=== PATIENT | male | born 1985 | race Caucasian/White ===

== ENCOUNTER 2021-10-12 18:35 | Inpatient (IN) | payer OTHER ==
[~2021-10-12] VITALS: Ht 182.9 cm; Wt 127.6 kg
[~2021-10-12 18:35] MED LIST: NAPROXEN250 MG PO
[2021-10-12] MEDS ORDERED: ONDANSETRON HCL INJ 2MG/ML 2ML 2 MG/ML VIAL IV STA (18:41)
[2021-10-12] MEDS ORDERED: Morphine 4mg Syringe 4 MG/ML INJ IV ONE (18:45)
[2021-10-12 19:02] LABS: BASOPHILS % 0.4 % (0.0-1.0); EOSINOPHILS % 0.3 % (0.0-6.0); HEMATOCRIT 44.1 % (38.2-49.6); HEMOGLOBIN 15.3 g/dL (14.0-18.0); LYMPHOCYTES # (AUTO) 1.3 (1.0-3.2); LYMPHOCYTES % 17.3 % (18.0-39.1); MEAN CORPUSCULAR HEMOGLOBIN 34.9 pg (28-32); MEAN CORPUSCULAR HGB CONC 34.7 g/dL (31-35); MEAN CORPUSCULAR VOLUME 100.7 fL (81-99); MONOCYTES # (AUTO) 0.3 (0.2-0.8); MONOCYTES % 4.1 % (4.4-11.3); NEUTROPHILS # (AUTO) 5.7 (2.1-6.9); NEUTROPHILS % 77.6 % (38.7-80.0); PLATELET COUNT 220 x10e3/uL (140-360); RED BLOOD COUNT 4.38 x10e6/uL (4.3-5.7); RED CELL DISTRIBUTION WIDTH 12.3 % (11.7-14.4)
[2021-10-12 19:25] LABS: ALBUMIN 3.6 g/dL (3.5-5.0); ALBUMIN/GLOBULIN RATIO 0.9 (0.8-2.0); ANION GAP 18.2 mmol/L (8-16); CALCIUM 9.2 mg/dL (8.4-10.2); CREATININE, SERUM 0.74 mg/dL (0.72-1.25); POTASSIUM 3.2 mmol/L (3.5-5.1)
[2021-10-12 19:26] LABS: AMYLASE 50 U/L (25-125); LIPASE 20 U/L (8-78)
[2021-10-12] MEDS: LEVOFLOXACIN 750MG/D5W 150ML 150 ML IV SCH (20:59)
[2021-10-12] MEDS: HYDROMORPHONE 1MG/1ML INJ IV PRN ×2 (20:59→21:01)
[2021-10-12] MEDS: ONDANSETRON HCL INJ 2MG/ML 2ML 2 MG/ML VIAL IV PRN ×2 (20:59→21:01)
[2021-10-12 21:39] VITALS: BP 144/78
[2021-10-12 21:51] LABS: CLARITY,URINE SL CLOUDY (CLEAR); COLOR,URINE AMBER (YELLOW); KETONES,URINE NEGATIVE (NEGATIVE); LEUKOCYTE ESTERASE ,URINE NEGATIVE (NEGATIVE); NITRITE,URINE NEGATIVE (NEGATIVE); PROTEIN,URINE DIPSTICK NEGATIVE (NEGATIVE); URINE UROBILINOGEN 0.2 mg/dL (0.2 - 1)
[2021-10-12 21:59] LABS: BACTERIA,URINE RARE /HPF; MUCUS,URINE FEW (RARE); WBC,URINE (MAN) 0-5 /HPF (0-5)
[2021-10-12 22:30] VITALS: BP 135/72
[2021-10-12] MEDS: SODIUM CHLORIDE 0.9% 1000ML 1,000 ML IV SCH (23:01)
[2021-10-12] MEDS: METRONIDAZOLE 500MG/NS 100ML 100 ML IV SCH (23:01)
[2021-10-13] VITALS (7 sets, daily range): BP systolic 137–152; BP diastolic 75–97
[2021-10-13] MEDS: ONDANSETRON HCL INJ 2MG/ML 2ML 2 MG/ML VIAL IV PRN ×4 (00:57→20:26)
[2021-10-13] MEDS: HYDROMORPHONE 1MG/1ML INJ IV PRN ×5 (00:58→20:26)
[2021-10-13] MEDS: POTASSIUM CHLORIDE 10MEQ/100ML 100 ML IV SCH ×4 (02:00→09:37)
[2021-10-13] MEDS ORDERED: MULTI-VITAMIN1 EACH PO (03:30)
[2021-10-13] MEDS ORDERED: ALLOPURINOL100 MG PO (03:30)
[2021-10-13] MEDS ORDERED: AMLODIPINE BESYL5 MG PO (03:30)
[2021-10-13] MEDS ORDERED: OMEPRAZOLE40 MG PO (03:30)
[2021-10-13] MEDS ORDERED: LISINOPRIL10 MG PO (03:30)
[2021-10-13] MEDS: SODIUM CHLORIDE 0.9% 1000ML 1,000 ML IV SCH ×3 (05:18→21:54)
[2021-10-13] MEDS: METRONIDAZOLE 500MG/NS 100ML 100 ML IV SCH ×4 (05:18→22:59)
[2021-10-13 05:51] LABS: BASOPHILS % 0.3 % (0.0-1.0); EOSINOPHILS % 0.5 % (0.0-6.0); LYMPHOCYTES % 13.5 % (18.0-39.1); MEAN CORPUSCULAR HEMOGLOBIN 34.7 pg (28-32); MEAN CORPUSCULAR HGB CONC 33.3 g/dL (31-35); MONOCYTES # (AUTO) 0.4 (0.2-0.8); MONOCYTES % 5.3 % (4.4-11.3); NEUTROPHILS # (AUTO) 5.8 (2.1-6.9); NEUTROPHILS % 79.7 % (38.7-80.0); PLATELET COUNT 150 x10e3/uL (140-360); RED BLOOD COUNT 3.75 x10e6/uL (4.3-5.7); RED CELL DISTRIBUTION WIDTH 12.8 % (11.7-14.4)
[2021-10-13 06:18] LABS: % IRON SATURATION 13 % (15-50); IRON 49 ug/dL (65-175); TOTAL IRON BINDING CAPACITY 389 ug/dL (261-478); TRANSFERRIN 278 mg/dL (174-364)
[2021-10-13 06:38] LABS: ALBUMIN 2.9 g/dL (3.5-5.0); ALBUMIN/GLOBULIN RATIO 0.8 (0.8-2.0); ANION GAP 16.2 mmol/L (8-16); CALCIUM 8.2 mg/dL (8.4-10.2); CREATININE, SERUM 0.76 mg/dL (0.72-1.25); POTASSIUM 3.2 mmol/L (3.5-5.1)
[2021-10-13] MEDS ORDERED: POTASSIUM CHLORIDE 20MEQ/100ML 200 ML IV ONE (13:30)
[2021-10-13 13:54] LABS: CHOL/HDL RATIO 3.8 (3.9-4.7)
[2021-10-13] MEDS: CYANOCOBALAMIN INJ 1,000 MCG/ML VIAL IM SCH (15:32)
[2021-10-13] MEDS: LEVOFLOXACIN 750MG/D5W 150ML 150 ML IV SCH (21:54)
[2021-10-14] VITALS (8 sets, daily range): BP systolic 108–146; BP diastolic 62–97
[2021-10-14] MEDS: HYDROMORPHONE 1MG/1ML INJ IV PRN ×6 (00:21→22:15)
[2021-10-14] MEDS: ONDANSETRON HCL INJ 2MG/ML 2ML 2 MG/ML VIAL IV PRN ×5 (00:21→17:59)
[2021-10-14] MEDS: ACETAMINOPHEN 325 MG TAB PO PRN (00:21)
[2021-10-14] MEDS: SODIUM CHLORIDE 0.9% 1000ML 1,000 ML IV SCH ×3 (05:26→21:13)
[2021-10-14] MEDS: METRONIDAZOLE 500MG/NS 100ML 100 ML IV SCH ×4 (05:26→23:00)
[2021-10-14] MEDS: IRON SUCROSE 100 MG in SODIUM CHLORIDE 0.9% 100 ML 100 ML IV SCH (09:27)
[2021-10-14] MEDS: CYANOCOBALAMIN INJ 1,000 MCG/ML VIAL IM SCH (09:27)
[2021-10-14] MEDS ORDERED: POTASSIUM CHLORIDE 20 MEQ TAB CR PO ONE (18:45)
[2021-10-14] MEDS: LEVOFLOXACIN 750MG/D5W 150ML 150 ML IV SCH (21:13)
[2021-10-15] VITALS (7 sets, daily range): BP systolic 114–143; BP diastolic 69–91
[2021-10-15] MEDS: ACETAMINOPHEN 325 MG TAB PO PRN (00:12)
[2021-10-15] MEDS: HYDROMORPHONE 1MG/1ML INJ IV PRN ×4 (02:27→20:13)
[2021-10-15] MEDS: METRONIDAZOLE 500MG/NS 100ML 100 ML IV SCH ×4 (04:37→22:57)
[2021-10-15] MEDS: SODIUM CHLORIDE 0.9% 1000ML 1,000 ML IV SCH ×3 (04:37→20:15)
[2021-10-15 07:34] LABS: BASOPHILS % 0.3 % (0.0-1.0); EOSINOPHILS # (AUTO) 0.1 (0.0-0.4); EOSINOPHILS % 1.4 % (0.0-6.0); HEMATOCRIT 34.8 % (38.2-49.6); HEMOGLOBIN 11.5 g/dL (14.0-18.0); LYMPHOCYTES # (AUTO) 1.3 (1.0-3.2); LYMPHOCYTES % 21.3 % (18.0-39.1); MEAN CORPUSCULAR HEMOGLOBIN 34.6 pg (28-32); MEAN CORPUSCULAR VOLUME 104.8 fL (81-99); MONOCYTES # (AUTO) 0.4 (0.2-0.8); MONOCYTES % 6.7 % (4.4-11.3); NEUTROPHILS # (AUTO) 4.3 (2.1-6.9); NEUTROPHILS % 69.5 % (38.7-80.0); PLATELET COUNT 109 x10e3/uL (140-360); RED BLOOD COUNT 3.32 x10e6/uL (4.3-5.7); RED CELL DISTRIBUTION WIDTH 12.3 % (11.7-14.4)
[2021-10-15 08:11] LABS: ANION GAP 14.1 mmol/L (8-16); CALCIUM 7.9 mg/dL (8.4-10.2); CREATININE, SERUM 0.73 mg/dL (0.72-1.25); POTASSIUM 3.1 mmol/L (3.5-5.1)
[2021-10-15] MEDS: CYANOCOBALAMIN INJ 1,000 MCG/ML VIAL IM SCH (09:11)
[2021-10-15] MEDS: IRON SUCROSE 100 MG in SODIUM CHLORIDE 0.9% 100 ML 100 ML IV SCH (09:16)
[2021-10-15] MEDS ORDERED: POTASSIUM CHLORIDE 20 MEQ TAB CR PO STA (19:39)
[2021-10-15] MEDS: LEVOFLOXACIN 750MG/D5W 150ML 150 ML IV SCH (20:15)
[2021-10-16] VITALS (7 sets, daily range): BP systolic 125–144; BP diastolic 79–96
[2021-10-16] MEDS ORDERED: MELATONIN 5 MG TABLET PO PRN (01:30)
[2021-10-16] MEDS: HYDROMORPHONE 1MG/1ML INJ IV PRN ×3 (01:50→16:34)
[2021-10-16] MEDS: METRONIDAZOLE 500MG/NS 100ML 100 ML IV SCH ×3 (05:23→16:27)
[2021-10-16] MEDS: SODIUM CHLORIDE 0.9% 1000ML 1,000 ML IV SCH ×2 (05:23→13:00)
[2021-10-16] MEDS: CYANOCOBALAMIN INJ 1,000 MCG/ML VIAL IM SCH (08:58)
[2021-10-16] MEDS: IRON SUCROSE 100 MG in SODIUM CHLORIDE 0.9% 100 ML 100 ML IV SCH (08:58)
[2021-10-16] MEDS: ONDANSETRON HCL INJ 2MG/ML 2ML 2 MG/ML VIAL IV PRN ×2 (09:03→16:34)
[2021-10-16] MEDS ORDERED: POTASSIUM CHLORIDE 20 MEQ TAB CR PO ONE ×3 (11:30→19:15)
[2021-10-16] MEDS ORDERED: ACETAMINOPHEN/CODEINE 300MG - 30MG TAB PO PRN (19:00)
[2021-10-16] MEDS ORDERED: LEVOFLOXACIN500 MG PO (20:36)
[2021-10-16] MEDS ORDERED: METRONIDAZOLE500 MG PO (20:36)
== END 2021-10-16 21:23 | disposition home or self-care (01) | DRG 392 ==
LOC: ER 18:41 → ERHOLD 21:06 → MED/SURG2 22:20
PROVIDERS: ADMIT Internal Medicine; ATTEND Internal Medicine
DX: K57.20 Diverticulitis of large intestine with perforation and abscess without bleeding (principal); K61.1 Rectal abscess; K74.60 Unspecified cirrhosis of liver; E53.8 Deficiency of other specified B group vitamins; E87.6 Hypokalemia; R73.9 Hyperglycemia, unspecified; Z20.822 Contact with and (suspected) exposure to COVID-19; R16.2 Hepatomegaly with splenomegaly, not elsewhere classified; E66.9 Obesity, unspecified; Z68.38 Body mass index [BMI] 38.0-38.9, adult; K21.9 Gastro-esophageal reflux disease without esophagitis; I10 Essential (primary) hypertension; F43.10 Post-traumatic stress disorder, unspecified; Z96.643 Presence of artificial hip joint, bilateral
CPT/HCPCS: 36415; 74177; 76705; 80048; 80053; 80061; 81001; 82150; 82607; 82746; 83036; 83540; 83690; 84132; 84466; 85025; 85045; 99251; 99284; J1170; J1756; J2405; J3420; J3480; J7030; U0002

== ENCOUNTER 2023-06-27 22:18 | Inpatient (IN) | payer OTHER ==
[~2023-06-27] VITALS: Ht 182.9 cm; Wt 118.8 kg
[~2023-06-27 22:18] MED LIST changes: +ACETAMINOPHEN-1 EAC3 PO; +ACETAMINOPHEN325 M1 PO; +ALLOPURINOL100 MG PO; +AMLODIPINE BESYL5 MG PO; +CEPHALEXIN500 MG PO; +DOXYCYCLINE HY100 MG PO; +Docusate Sodium PO; +FLAGYL375 MG PO; +K-DUR10 MEQ PO; +LEVOFLOXACIN500 MG PO; +LISINOPRIL10 MG PO; +METRONIDAZOLE500 MG PO; +MINOCYCLINE HCL50 MG PO; +MULTI-VITAMIN1 EACH PO; +OMEPRAZOLE40 MG PO; +ULTRAM 50MG50 MG PO
[2023-06-27] MEDS ORDERED: Morphine 4mg INJECTION 4 MG/ML INJ IV STA (22:26)
[2023-06-27] MEDS ORDERED: ONDANSETRON HCL INJ 2MG/ML 2ML 2 MG/ML VIAL IV STA (22:26)
[2023-06-27] MEDS ORDERED: SODIUM CHLORIDE 0.9% 1000ML 1,000 ML IV STA (22:37)
[2023-06-27] MEDS ORDERED: ACETAMINOPHEN 325 MG TAB PO STA (22:37)
[2023-06-27 23:05] LABS: BASOPHILS % 0.2 % (0.0-1.0); EOSINOPHILS # (AUTO) 0.1 (0.0-0.4); EOSINOPHILS % 1.1 % (0.0-6.0); HEMOGLOBIN 10.6 g/dL (14.0-18.0); LYMPHOCYTES # (AUTO) 1.5 (1.0-3.2); LYMPHOCYTES % 18.2 % (18.0-39.1); MEAN CORPUSCULAR HEMOGLOBIN 39.1 pg (28-32); MEAN CORPUSCULAR HGB CONC 33.1 g/dL (31-35); MEAN CORPUSCULAR VOLUME 118.1 fL (81-99); MONOCYTES # (AUTO) 0.5 (0.2-0.8); MONOCYTES % 5.9 % (4.4-11.3); NEUTROPHILS # (AUTO) 6.2 (2.1-6.9); NEUTROPHILS % 74.4 % (38.7-80.0); PLATELET COUNT 270 x10e3/uL (140-360); RED BLOOD COUNT 2.71 x10e6/uL (4.3-5.7); RED CELL DISTRIBUTION WIDTH 12.8 % (11.7-14.4); WHITE BLOOD COUNT 8.37 x10e3/uL (4.8-10.8)
[2023-06-27 23:22] LABS: ALANINE AMINOTRANSFERASE 20 IU/L (0-55); ALBUMIN 3.4 g/dL (3.5-5.0); ALBUMIN/GLOBULIN RATIO 0.9 (0.8-2.0); ALKALINE PHOSPHATASE 391 IU/L (40-150); ANION GAP 22.6 mmol/L (8-16); BILIRUBIN,TOTAL 0.8 mg/dL (0.2-1.2); BLOOD UREA NITROGEN < 5 mg/dL (7-26); CALCIUM 8.4 mg/dL (8.4-10.2); CARBON DIOXIDE 17 mmol/L (22-29); CHLORIDE 103 mmol/L (98-107); CREATININE, SERUM 0.69 mg/dL (0.72-1.25); EST GLOMERULAR FILTRATION RATE 121 ML/MIN (>=60); GLUCOSE 109 mg/dL (74-118); SODIUM 140 mmol/L (136-145); TOTAL PROTEIN 7.3 g/dL (6.5-8.1)
[2023-06-27 23:28] LABS: BUN/CREATININE RATIO 7 (6-25)
[2023-06-27 23:29] LABS: POTASSIUM 2.6 mmol/L (3.5-5.1)
[2023-06-27] MEDS ORDERED: POTASSIUM CHLORIDE 10MEQ EA PO SCH (23:30)
[2023-06-27] MEDS ORDERED: SODIUM CHLORIDE 0.9% 1000ML 2,000 ML IV STA (23:31)
[2023-06-27] MEDS ORDERED: SODIUM CHLORIDE 0.9% 1000ML 1,000 ML ONE (23:51)
[2023-06-28] MEDS ORDERED: SODIUM CHLORIDE 0.9% 1000ML 1,000 ML IV SCH (01:45)
[2023-06-28] MEDS ORDERED: PROMETHAZINE 25MG/SOD CHL 0.9% 50 ML IV ONE (02:10)
[2023-06-28] MEDS: Morphine 4mg INJECTION 4 MG/ML INJ IV PRN ×5 (02:13→22:18)
[2023-06-28] MEDS ORDERED: PROMETHAZINE 25MG/ NS 50ML (IV) IV ONE (02:15)
[2023-06-28 04:03] LABS: BILIRUBIN,URINE 1+ (NEGATIVE); CLARITY,URINE CLEAR (CLEAR); GLUCOSE, URINE NEGATIVE (NEGATIVE); KETONES,URINE NEGATIVE (NEGATIVE); LEUKOCYTE ESTERASE ,URINE NEGATIVE (NEGATIVE); NITRITE,URINE NEGATIVE (NEGATIVE); PH,URINE 6.5 (5 - 7); PROTEIN,URINE DIPSTICK NEGATIVE (NEGATIVE); URINE UROBILINOGEN 0.2 mg/dL (0.2 - 1)
[2023-06-28 04:04] LABS: COLOR,URINE ORANGE (YELLOW)
[2023-06-28 04:09] LABS: BACTERIA,URINE FEW /HPF; EPITHELIAL CELLS,URINE FEW /LPF; MUCUS,URINE FEW (RARE); RBC,URINE 0-5 /HPF (0-5); TRANSITIONAL EPI CELLS,URINE FEW
[2023-06-28] MEDS: HYDROCODONE/APAP 7.5MG-325MG 1 EA TAB PO PRN ×3 (05:43→23:47)
[2023-06-28] MEDS ORDERED: HYDROCODONE/APAP 7.5MG-325MG 1 EA TAB ONE (05:44)
[2023-06-28] MEDS ORDERED: ONDANSETRON HCL 4 MG ORAL DISINTEGRATING TAB ONE (05:44)
[2023-06-28] MEDS ORDERED: ONDANSETRON HCL 4 MG ORAL DISINTEGRATING TAB PO PRN (05:45)
[2023-06-28] MEDS ORDERED: METOPROLOL TARTRATE INJ 1 MG/ML VIAL IV PRN (06:30)
[2023-06-28] MEDS ORDERED: SIMETHICONE 80 MG CHEW PO PRN (06:30)
[2023-06-28] MEDS ORDERED: ALBUTEROL/IPRATROPIUM 3 ML NEB NEB PRN (06:30)
[2023-06-28] MEDS ORDERED: Vancomycin IV 1 GM in SODIUM CHLORIDE 0.9% 250ML 250 ML IV ONE (06:30)
[2023-06-28] MEDS ORDERED: ACETAMINOPHEN 325 MG TAB PO PRN (06:30)
[2023-06-28] MEDS ORDERED: DOCUSATE SODIUM 100 MG CAP PO PRN (06:30)
[2023-06-28 06:49] LABS: BASOPHILS % 0.6 % (0.0-1.0); EOSINOPHILS # (AUTO) 0.1 (0.0-0.4); EOSINOPHILS % 0.9 % (0.0-6.0); HEMATOCRIT 25.3 % (38.2-49.6); HEMOGLOBIN 8.5 g/dL (14.0-18.0); LYMPHOCYTES # (AUTO) 1.5 (1.0-3.2); LYMPHOCYTES % 27.6 % (18.0-39.1); MEAN CORPUSCULAR HEMOGLOBIN 39.4 pg (28-32); MEAN CORPUSCULAR HGB CONC 33.6 g/dL (31-35); MEAN CORPUSCULAR VOLUME 117.1 fL (81-99); MONOCYTES # (AUTO) 0.3 (0.2-0.8); NEUTROPHILS # (AUTO) 3.4 (2.1-6.9); NEUTROPHILS % 64.7 % (38.7-80.0); PLATELET COUNT 197 x10e3/uL (140-360); RED BLOOD COUNT 2.16 x10e6/uL (4.3-5.7); RED CELL DISTRIBUTION WIDTH 12.6 % (11.7-14.4); WHITE BLOOD COUNT 5.29 x10e3/uL (4.8-10.8)
[2023-06-28 07:01] LABS: ALANINE AMINOTRANSFERASE 16 IU/L (0-55); ALBUMIN 2.7 g/dL (3.5-5.0); ALBUMIN/GLOBULIN RATIO 0.8 (0.8-2.0); ALKALINE PHOSPHATASE 298 IU/L (40-150); BILIRUBIN,TOTAL 0.9 mg/dL (0.2-1.2); BLOOD UREA NITROGEN < 5 mg/dL (7-26); CALCIUM 7.4 mg/dL (8.4-10.2); CARBON DIOXIDE 20 mmol/L (22-29); CHLORIDE 108 mmol/L (98-107); CREATININE, SERUM 0.63 mg/dL (0.72-1.25); EST GLOMERULAR FILTRATION RATE 124 ML/MIN (>=60); GLUCOSE 78 mg/dL (74-118); SODIUM 139 mmol/L (136-145); TOTAL PROTEIN 5.9 g/dL (6.5-8.1)
[2023-06-28 07:07] LABS: BUN/CREATININE RATIO 8 (6-25)
[2023-06-28] MEDS ORDERED: IOPAMIDOL 370 MG/ML 100 ML INFUS..BTL INJ ONE (07:17)
[2023-06-28] MEDS: ONDANSETRON HCL INJ 2MG/ML 2ML 2 MG/ML VIAL IV PRN ×3 (08:23→22:17)
[2023-06-28] MEDS: PANTOPRAZOLE SOD 40 MG TABEC PO SCH ×2 (08:58→16:54)
[2023-06-28] MEDS: ALLOPURINOL 100 MG TAB PO SCH ×2 (09:00→15:28)
[2023-06-28] MEDS: SODIUM BICARBONATE 8.4% 50 ML in SODIUM CHLORIDE 0.45% 1,000 ML IV SCH ×2 (10:43→16:54)
[2023-06-28] MEDS: METRONIDAZOLE 500MG/NS 100ML 100 ML IV SCH ×2 (12:36→16:54)
[2023-06-28 16:14] VITALS: BP 123/78; PULSE 86; RESP 18; TEMP 98.4; O2SAT 98
[2023-06-28 16:43] VITALS: BP 123/78; PULSE 86; RESP 18; TEMP 98.4; O2SAT 98
[2023-06-28] MEDS ORDERED: NEURONTIN300 MG PO (16:53)
[2023-06-28 19:42] VITALS: PULSE 87; RESP 18; O2SAT 99
[2023-06-28 19:49] VITALS: BP 122/79; PULSE 87; RESP 18; TEMP 98.2; O2SAT 99
[2023-06-28 19:54] VITALS: BP 123/78; PULSE 86; RESP 18; TEMP 98.4; O2SAT 98
[2023-06-28 22:15] LABS: % IRON SATURATION 51 % (15-50); IRON 95 ug/dL (65-175); TOTAL IRON BINDING CAPACITY 185 ug/dL (261-478); TRANSFERRIN 132 mg/dL (174-364)
[2023-06-28 22:51] LABS: FOLATE 0.5 ng/mL (7.0-15.4)
[2023-06-28] MEDS ORDERED: FOLIC ACID/CYANOCOB/PYRIDOXINE TAB PO STA (23:26)
[2023-06-28] MEDS ORDERED: CYANOCOBALAMIN INJ 1,000 MCG/ML VIAL IM STA (23:26)
[2023-06-28] MEDS: METOCLOPRAMIDE HCL 10 MG/2ML VIAL IV SCH (23:52)
[2023-06-29] VITALS (13 sets, daily range): BP systolic 110–138; BP diastolic 63–88; PULSE 86–100; RESP 16–21; TEMP 98.1–98.6; O2SAT 99–100
[2023-06-29] MEDS ORDERED: SODIUM CHLORIDE 0.45% 0 ML ONE (00:08)
[2023-06-29] MEDS: SODIUM BICARBONATE 8.4% 50 ML in SODIUM CHLORIDE 0.45% 1,000 ML IV SCH ×2 (01:53→17:14)
[2023-06-29] MEDS: METRONIDAZOLE 500MG/NS 100ML 100 ML IV SCH ×3 (01:54→17:17)
[2023-06-29] MEDS: METOCLOPRAMIDE HCL 10 MG/2ML VIAL IV SCH ×4 (05:40→22:36)
[2023-06-29 06:06] LABS: ALANINE AMINOTRANSFERASE 17 IU/L (0-55); ALBUMIN 2.5 g/dL (3.5-5.0); ALBUMIN/GLOBULIN RATIO 0.8 (0.8-2.0); ALKALINE PHOSPHATASE 286 IU/L (40-150); ANION GAP 13.6 mmol/L (8-16); BILIRUBIN,TOTAL 1.1 mg/dL (0.2-1.2); BLOOD UREA NITROGEN < 5 mg/dL (7-26); CALCIUM 7.5 mg/dL (8.4-10.2); CARBON DIOXIDE 22 mmol/L (22-29); CHLORIDE 105 mmol/L (98-107); CREATININE, SERUM 0.57 mg/dL (0.72-1.25); EST GLOMERULAR FILTRATION RATE 128 ML/MIN (>=60); GLUCOSE 77 mg/dL (74-118); SODIUM 138 mmol/L (136-145); TOTAL PROTEIN 5.5 g/dL (6.5-8.1)
[2023-06-29 06:13] LABS: BASOPHILS % 0.7 % (0.0-1.0); EOSINOPHILS # (AUTO) 0.1 (0.0-0.4); EOSINOPHILS % 1.4 % (0.0-6.0); HEMATOCRIT 25.4 % (38.2-49.6); HEMOGLOBIN 8.4 g/dL (14.0-18.0); LYMPHOCYTES # (AUTO) 1.1 (1.0-3.2); LYMPHOCYTES % 24.3 % (18.0-39.1); MEAN CORPUSCULAR HEMOGLOBIN 39.4 pg (28-32); MEAN CORPUSCULAR HGB CONC 33.1 g/dL (31-35); MEAN CORPUSCULAR VOLUME 119.2 fL (81-99); MONOCYTES # (AUTO) 0.3 (0.2-0.8); MONOCYTES % 6.7 % (4.4-11.3); NEUTROPHILS # (AUTO) 2.9 (2.1-6.9); NEUTROPHILS % 66.7 % (38.7-80.0); PLATELET COUNT 168 x10e3/uL (140-360); RED BLOOD COUNT 2.13 x10e6/uL (4.3-5.7); RED CELL DISTRIBUTION WIDTH 12.9 % (11.7-14.4); WHITE BLOOD COUNT 4.36 x10e3/uL (4.8-10.8)
[2023-06-29 06:15] LABS: BUN/CREATININE RATIO 9 (6-25)
[2023-06-29] MEDS: ONDANSETRON HCL INJ 2MG/ML 2ML 2 MG/ML VIAL IV PRN ×3 (06:18→17:25)
[2023-06-29] MEDS: Morphine 4mg INJECTION 4 MG/ML INJ IV PRN ×3 (06:18→17:25)
[2023-06-29 06:19] LABS: POTASSIUM 2.6 mmol/L (3.5-5.1)
[2023-06-29] MEDS ORDERED: POTASSIUM CHLORIDE 10MEQ/100ML 100 ML IV ONE (07:45)
[2023-06-29] MEDS ORDERED: POTASSIUM CHLORIDE 10MEQ EA PO ONE (07:45)
[2023-06-29] MEDS: HYDROCODONE/APAP 7.5MG-325MG 1 EA TAB PO PRN ×3 (08:05→22:43)
[2023-06-29] MEDS: SUCRALFATE 1 GM TAB PO SCH ×4 (08:06→22:35)
[2023-06-29] MEDS: FOLIC ACID/CYANOCOB/PYRIDOXINE TAB PO SCH (08:08)
[2023-06-29] MEDS: ALLOPURINOL 100 MG TAB PO SCH (08:08)
[2023-06-29] MEDS: CYANOCOBALAMIN INJ 1,000 MCG/ML VIAL IM SCH (08:09)
[2023-06-29 10:43] LABS: WBC,FECAL (FECAL LACTOFERRIN) POSITIVE (NEGATIVE)
[2023-06-29] MEDS: MELATONIN 3 MG TAB PO PRN (22:43)
[2023-06-30] VITALS (9 sets, daily range): BP systolic 112–132; BP diastolic 67–84; PULSE 86–98; RESP 18–21; TEMP 97.6–98.9; O2SAT 96–100
[2023-06-30] MEDS: SODIUM BICARBONATE 8.4% 50 ML in SODIUM CHLORIDE 0.45% 1,000 ML IV SCH ×3 (00:30→22:13)
[2023-06-30] MEDS ORDERED: VANCOMYCIN HCL 125 MG CAPSULE PO ONE (01:00)
[2023-06-30] MEDS: METOCLOPRAMIDE HCL 10 MG/2ML VIAL IV SCH ×4 (04:57→22:12)
[2023-06-30] MEDS: METRONIDAZOLE 500MG/NS 100ML 100 ML IV SCH ×3 (04:57→16:56)
[2023-06-30] MEDS: VANCOMYCIN HCL 125 MG CAPSULE PO SCH ×3 (04:58→16:56)
[2023-06-30] MEDS: Morphine 4mg INJECTION 4 MG/ML INJ IV PRN ×4 (05:33→22:12)
[2023-06-30 06:05] LABS: BASOPHILS % 0.8 % (0.0-1.0); EOSINOPHILS # (AUTO) 0.1 (0.0-0.4); EOSINOPHILS % 1.8 % (0.0-6.0); HEMATOCRIT 25.4 % (38.2-49.6); HEMOGLOBIN 8.5 g/dL (14.0-18.0); LYMPHOCYTES % 24.9 % (18.0-39.1); MEAN CORPUSCULAR HEMOGLOBIN 39.5 pg (28-32); MEAN CORPUSCULAR HGB CONC 33.5 g/dL (31-35); MEAN CORPUSCULAR VOLUME 118.1 fL (81-99); MONOCYTES # (AUTO) 0.3 (0.2-0.8); MONOCYTES % 8.1 % (4.4-11.3); NEUTROPHILS # (AUTO) 2.5 (2.1-6.9); NEUTROPHILS % 64.1 % (38.7-80.0); PLATELET COUNT 168 x10e3/uL (140-360); RED BLOOD COUNT 2.15 x10e6/uL (4.3-5.7); RED CELL DISTRIBUTION WIDTH 12.8 % (11.7-14.4); WHITE BLOOD COUNT 3.93 x10e3/uL (4.8-10.8)
[2023-06-30] MEDS: HYDROCODONE/APAP 7.5MG-325MG 1 EA TAB PO PRN ×3 (06:31→18:48)
[2023-06-30 06:42] LABS: ANION GAP 14.8 mmol/L (8-16); BLOOD UREA NITROGEN < 5 mg/dL (7-26); CALCIUM 7.8 mg/dL (8.4-10.2); CARBON DIOXIDE 23 mmol/L (22-29); CHLORIDE 103 mmol/L (98-107); CREATININE, SERUM 0.61 mg/dL (0.72-1.25); EST GLOMERULAR FILTRATION RATE 125 ML/MIN (>=60); GLUCOSE 84 mg/dL (74-118); PHOSPHORUS 2.4 MG/DL (2.3-4.7); SODIUM 138 mmol/L (136-145)
[2023-06-30 06:45] LABS: BUN/CREATININE RATIO 8 (6-25); POTASSIUM 2.8 mmol/L (3.5-5.1)
[2023-06-30 06:46] LABS: MAGNESIUM 1.1 MG/DL (1.3-2.1)
[2023-06-30] MEDS: SUCRALFATE 1 GM TAB PO SCH ×4 (07:36→22:13)
[2023-06-30] MEDS ORDERED: POTASSIUM CHLORIDE 20MEQ/100ML 100 ML IV ONE ×2 (08:00→13:00)
[2023-06-30] MEDS ORDERED: MAGNESIUM SULFATE 2GM/50ML 50 ML IV ONE ×2 (08:00→13:00)
[2023-06-30] MEDS: CYANOCOBALAMIN INJ 1,000 MCG/ML VIAL IM SCH (08:59)
[2023-06-30] MEDS: FOLIC ACID/CYANOCOB/PYRIDOXINE TAB PO SCH (09:00)
[2023-06-30] MEDS: ALLOPURINOL 100 MG TAB PO SCH (09:00)
[2023-06-30] MEDS ORDERED: POTASSIUM CHLORIDE 10MEQ/100ML 100 ML IV ONE (10:00)
[2023-06-30 11:07] LABS: PLATELET ESTIMATE ADEQUATE; PLATELET MORPHOLOGY COMMENT NORMAL; RBC MORPHOLOGY COMMENT NORMAL
[2023-06-30] MEDS ORDERED: POTASSIUM CHLORIDE 20 MEQ TAB CR PO ONE (13:00)
[2023-06-30 14:42] LABS: HEPATITIS B SURFACE AG (P) Negative
[2023-06-30 14:43] LABS: HEPATITIS C ANTIBODY Non Reactive
[2023-06-30] MEDS ORDERED: VANCOMYCIN HCL 125 MG CAPSULE PO SCH (23:30)
[2023-07-01] VITALS (7 sets, daily range): BP systolic 109–135; BP diastolic 60–87; PULSE 82–97; RESP 16–20; TEMP 98–98.6; O2SAT 98–100
[2023-07-01] MEDS: VANCOMYCIN HCL 125 MG CAPSULE PO SCH ×5 (01:01→22:58)
[2023-07-01] MEDS: METRONIDAZOLE 500MG/NS 100ML 100 ML IV SCH ×3 (01:01→17:04)
[2023-07-01] MEDS: HYDROCODONE/APAP 7.5MG-325MG 1 EA TAB PO PRN ×4 (01:47→20:39)
[2023-07-01] MEDS: METOCLOPRAMIDE HCL 10 MG/2ML VIAL IV SCH ×4 (06:27→22:58)
[2023-07-01] MEDS: Morphine 4mg INJECTION 4 MG/ML INJ IV PRN ×4 (06:39→23:03)
[2023-07-01] MEDS: SUCRALFATE 1 GM TAB PO SCH ×4 (08:16→20:38)
[2023-07-01] MEDS: FOLIC ACID/CYANOCOB/PYRIDOXINE TAB PO SCH (08:16)
[2023-07-01] MEDS: ALLOPURINOL 100 MG TAB PO SCH (08:16)
[2023-07-01] MEDS: CYANOCOBALAMIN INJ 1,000 MCG/ML VIAL IM SCH (08:17)
[2023-07-01] MEDS: SODIUM BICARBONATE 8.4% 50 ML in SODIUM CHLORIDE 0.45% 1,000 ML IV SCH ×3 (08:17→23:56)
[2023-07-01 09:09] LABS: BASOPHILS % 0.5 % (0.0-1.0); EOSINOPHILS # (AUTO) 0.1 (0.0-0.4); EOSINOPHILS % 1.2 % (0.0-6.0); HEMATOCRIT 26.9 % (38.2-49.6); LYMPHOCYTES # (AUTO) 0.9 (1.0-3.2); MEAN CORPUSCULAR HEMOGLOBIN 39.6 pg (28-32); MEAN CORPUSCULAR HGB CONC 33.5 g/dL (31-35); MEAN CORPUSCULAR VOLUME 118.5 fL (81-99); MONOCYTES # (AUTO) 0.4 (0.2-0.8); MONOCYTES % 8.5 % (4.4-11.3); NEUTROPHILS # (AUTO) 2.8 (2.1-6.9); NEUTROPHILS % 67.6 % (38.7-80.0); PLATELET COUNT 171 x10e3/uL (140-360); RED BLOOD COUNT 2.27 x10e6/uL (4.3-5.7); RED CELL DISTRIBUTION WIDTH 13.2 % (11.7-14.4); WHITE BLOOD COUNT 4.14 x10e3/uL (4.8-10.8)
[2023-07-01 09:31] LABS: ANION GAP 12.8 mmol/L (8-16); BLOOD UREA NITROGEN < 5 mg/dL (7-26); CARBON DIOXIDE 24 mmol/L (22-29); CHLORIDE 105 mmol/L (98-107); CREATININE, SERUM 0.58 mg/dL (0.72-1.25); EST GLOMERULAR FILTRATION RATE 127 ML/MIN (>=60); GLUCOSE 106 mg/dL (74-118); SODIUM 139 mmol/L (136-145)
[2023-07-01 09:35] LABS: BUN/CREATININE RATIO 9 (6-25)
[2023-07-01 09:36] LABS: POTASSIUM 2.8 mmol/L (3.5-5.1)
[2023-07-01 09:55] LABS: MAGNESIUM 1.4 MG/DL (1.3-2.1); PHOSPHORUS 2.2 MG/DL (2.3-4.7)
[2023-07-01] MEDS ORDERED: POTASSIUM CHLORIDE 20 MEQ TAB CR PO ONE (10:20)
[2023-07-01] MEDS ORDERED: POTASSIUM CHLORIDE 20MEQ/100ML 100 ML IV ONE (10:20)
[2023-07-01] MEDS ORDERED: IOPAMIDOL 370 MG/ML 100 ML INFUS..BTL INJ ONE (10:49)
[2023-07-01] MEDS ORDERED: DIATRIZOATE MEGL/DIATRIZOA SOD 30 ML BTL PO ONE (11:01)
[2023-07-01] MEDS ORDERED: LIDOCAINE HCL 2% LOCAL INJ 5 ML SDV VIAL INJ ONE (12:15)
[2023-07-01] MEDS ORDERED: PROPOFOL IV EMULSION 10 MG/ML 20 ML VIAL ONE (12:15)
[2023-07-01] MEDS ORDERED: CHOLESTYRAMINE 4 GM PACKET PO ONE (22:30)
[2023-07-01] MEDS ORDERED: DICYCLOMINE HCL 20 MG TAB PO ONE (22:45)
[2023-07-02] VITALS (11 sets, daily range): BP systolic 102–135; BP diastolic 50–87; PULSE 85–94; RESP 16–19; TEMP 97.9–98.5; O2SAT 96–100
[2023-07-02] MEDS: METRONIDAZOLE 500MG/NS 100ML 100 ML IV SCH ×3 (01:27→17:03)
[2023-07-02] MEDS: VANCOMYCIN HCL 125 MG CAPSULE PO SCH ×3 (06:12→17:03)
[2023-07-02] MEDS: METOCLOPRAMIDE HCL 10 MG/2ML VIAL IV SCH ×3 (06:12→17:03)
[2023-07-02] MEDS: HYDROCODONE/APAP 7.5MG-325MG 1 EA TAB PO PRN ×3 (06:29→18:15)
[2023-07-02] MEDS: ALLOPURINOL 100 MG TAB PO SCH (08:48)
[2023-07-02] MEDS: CYANOCOBALAMIN INJ 1,000 MCG/ML VIAL IM SCH (08:48)
[2023-07-02] MEDS: FOLIC ACID/CYANOCOB/PYRIDOXINE TAB PO SCH (08:49)
[2023-07-02] MEDS: DICYCLOMINE HCL 20 MG TAB PO SCH ×4 (08:49→21:12)
[2023-07-02] MEDS: SUCRALFATE 1 GM TAB PO SCH ×4 (08:49→21:12)
[2023-07-02] MEDS: Morphine 4mg INJECTION 4 MG/ML INJ IV PRN ×3 (08:53→21:16)
[2023-07-02] MEDS ORDERED: CHOLESTYRAMINE 4 GM PACKET PO SCH ×2 (10:00)
[2023-07-02] MEDS: SODIUM BICARBONATE 8.4% 50 ML in SODIUM CHLORIDE 0.45% 1,000 ML IV SCH (17:10)
[2023-07-02] MEDS: MELATONIN 3 MG TAB PO PRN (21:12)
[2023-07-03] VITALS (7 sets, daily range): BP systolic 114–132; BP diastolic 76–98; PULSE 72–98; RESP 18–22; TEMP 97.6–98.9; O2SAT 97–100
[2023-07-03] MEDS: VANCOMYCIN HCL 125 MG CAPSULE PO SCH ×5 (00:13→23:25)
[2023-07-03] MEDS: METOCLOPRAMIDE HCL 10 MG/2ML VIAL IV SCH ×5 (00:13→23:25)
[2023-07-03] MEDS: HYDROCODONE/APAP 7.5MG-325MG 1 EA TAB PO PRN ×3 (01:09→19:02)
[2023-07-03] MEDS: CHOLESTYRAMINE 4 GM PACKET PO SCH ×3 (02:06→19:01)
[2023-07-03] MEDS: METRONIDAZOLE 500MG/NS 100ML 100 ML IV SCH ×3 (02:06→19:01)
[2023-07-03] MEDS: Morphine 4mg INJECTION 4 MG/ML INJ IV PRN ×4 (02:18→20:58)
[2023-07-03] MEDS: SODIUM BICARBONATE 8.4% 50 ML in SODIUM CHLORIDE 0.45% 1,000 ML IV SCH ×3 (06:21→23:26)
[2023-07-03] MEDS: SUCRALFATE 1 GM TAB PO SCH ×4 (07:44→20:55)
[2023-07-03 08:26] LABS: BASOPHILS % 0.5 % (0.0-1.0); EOSINOPHILS # (AUTO) 0.1 (0.0-0.4); EOSINOPHILS % 1.5 % (0.0-6.0); HEMOGLOBIN 8.8 g/dL (14.0-18.0); LYMPHOCYTES % 24.5 % (18.0-39.1); MEAN CORPUSCULAR HEMOGLOBIN 39.1 pg (28-32); MEAN CORPUSCULAR HGB CONC 32.6 g/dL (31-35); MONOCYTES # (AUTO) 0.4 (0.2-0.8); MONOCYTES % 11.2 % (4.4-11.3); NEUTROPHILS # (AUTO) 2.4 (2.1-6.9); PLATELET COUNT 164 x10e3/uL (140-360); RED BLOOD COUNT 2.25 x10e6/uL (4.3-5.7); RED CELL DISTRIBUTION WIDTH 14.1 % (11.7-14.4); WHITE BLOOD COUNT 3.92 x10e3/uL (4.8-10.8)
[2023-07-03 08:41] LABS: BLOOD UREA NITROGEN < 5 mg/dL (7-26); BUN/CREATININE RATIO 8 (6-25); CALCIUM 8.4 mg/dL (8.4-10.2); CARBON DIOXIDE 22 mmol/L (22-29); CHLORIDE 106 mmol/L (98-107); EST GLOMERULAR FILTRATION RATE 126 ML/MIN (>=60); GLUCOSE 92 mg/dL (74-118); SODIUM 138 mmol/L (136-145)
[2023-07-03 09:14] LABS: PLATELET ESTIMATE ADEQUATE; PLATELET MORPHOLOGY COMMENT NORMAL; RBC MORPHOLOGY COMMENT NORMAL
[2023-07-03] MEDS: ALLOPURINOL 100 MG TAB PO SCH (09:59)
[2023-07-03] MEDS: FOLIC ACID/CYANOCOB/PYRIDOXINE TAB PO SCH (09:59)
[2023-07-03] MEDS: CYANOCOBALAMIN INJ 1,000 MCG/ML VIAL IM SCH (10:00)
[2023-07-03] MEDS ORDERED: KCL 20 MEQ PACKET/ ORAL SOLN PO ONE (10:00)
[2023-07-03] MEDS: DICYCLOMINE HCL 20 MG TAB PO SCH ×4 (10:00→20:55)
[2023-07-03] MEDS ORDERED: POTASSIUM CHLORIDE 20 MEQ TAB CR PO ONE (10:00)
[2023-07-03] MEDS ORDERED: BISACODYL 5 MG TAB EC PO ONE ×3 (15:15→17:00)
[2023-07-03] MEDS ORDERED: CITRATE OF MAGNESIA 300ML BOTTLE PO ONE ×2 (21:00→23:00)
[2023-07-04] VITALS (8 sets, daily range): BP systolic 114–139; BP diastolic 64–89; PULSE 69–94; RESP 18–20; TEMP 97.3–98.9; O2SAT 95–100
[2023-07-04] MEDS: HYDROCODONE/APAP 7.5MG-325MG 1 EA TAB PO PRN ×3 (00:54→18:33)
[2023-07-04] MEDS: METRONIDAZOLE 500MG/NS 100ML 100 ML IV SCH ×3 (01:35→17:17)
[2023-07-04] MEDS: Morphine 4mg INJECTION 4 MG/ML INJ IV PRN ×4 (03:03→21:40)
[2023-07-04] MEDS: ONDANSETRON HCL INJ 2MG/ML 2ML 2 MG/ML VIAL IV PRN ×4 (03:03→21:38)
[2023-07-04] MEDS: METOCLOPRAMIDE HCL 10 MG/2ML VIAL IV SCH ×3 (05:47→17:17)
[2023-07-04] MEDS: VANCOMYCIN HCL 125 MG CAPSULE PO SCH ×3 (06:00→17:16)
[2023-07-04] MEDS: DICYCLOMINE HCL 20 MG TAB PO SCH ×5 (09:00→21:38)
[2023-07-04 11:46] LABS: WBC,FECAL (FECAL LACTOFERRIN) POSITIVE (NEGATIVE)
[2023-07-04] MEDS: FOLIC ACID/CYANOCOB/PYRIDOXINE TAB PO SCH (12:04)
[2023-07-04] MEDS: CYANOCOBALAMIN INJ 1,000 MCG/ML VIAL IM SCH (12:04)
[2023-07-04] MEDS: CHOLESTYRAMINE 4 GM PACKET PO SCH ×2 (12:04→17:16)
[2023-07-04] MEDS: SUCRALFATE 1 GM TAB PO SCH ×4 (12:04→21:38)
[2023-07-04] MEDS: ALLOPURINOL 100 MG TAB PO SCH (12:05)
[2023-07-04] MEDS: SODIUM BICARBONATE 8.4% 50 ML in SODIUM CHLORIDE 0.45% 1,000 ML IV SCH ×2 (12:28→21:37)
[2023-07-05] VITALS: BP 125/86; PULSE 86; RESP 18; TEMP 98.6; O2SAT 99
[2023-07-05] MEDS: HYDROCODONE/APAP 7.5MG-325MG 1 EA TAB PO PRN (00:19)
[2023-07-05] MEDS: METOCLOPRAMIDE HCL 10 MG/2ML VIAL IV SCH ×2 (00:19→05:56)
[2023-07-05] MEDS: VANCOMYCIN HCL 125 MG CAPSULE PO SCH ×2 (00:19→05:56)
[2023-07-05] MEDS: MELATONIN 3 MG TAB PO PRN (00:42)
[2023-07-05] MEDS: METRONIDAZOLE 500MG/NS 100ML 100 ML IV SCH ×2 (01:48→08:16)
[2023-07-05 04:30] VITALS: BP 117/70; PULSE 75; RESP 18; TEMP 97.2; O2SAT 99
[2023-07-05] MEDS ORDERED: CARAFATE1 GM PO (05:22)
[2023-07-05] MEDS ORDERED: METRONIDAZOLE500 MG PO (05:22)
[2023-07-05] MEDS ORDERED: NEPHRO-VITE TABL1 EA PO (05:22)
[2023-07-05] MEDS ORDERED: ONDANSETRON ODT4 MG PO (05:22)
[2023-07-05] MEDS ORDERED: CHOLESTYRAMINE L4 GM PO (05:22)
[2023-07-05] MEDS ORDERED: DICYCLOMINE HCL20 MG PO (05:22)
[2023-07-05] MEDS ORDERED: REGLAN5 MG PO (05:22)
[2023-07-05] MEDS ORDERED: VANCOMYCIN HCL125 MG PO (05:22)
[2023-07-05] MEDS ORDERED: POTASSIUM CHLO20 ME1 PO (05:25)
[2023-07-05] MEDS ORDERED: ACETAMINOPHEN/CODEINE 300MG - 30MG TAB PO PRN (06:15)
[2023-07-05] MEDS: SODIUM BICARBONATE 8.4% 50 ML in SODIUM CHLORIDE 0.45% 1,000 ML IV SCH (06:30)
[2023-07-05 07:03] LABS: ANION GAP 11.2 mmol/L (8-16); BLOOD UREA NITROGEN < 5 mg/dL (7-26); CALCIUM 8.3 mg/dL (8.4-10.2); CARBON DIOXIDE 23 mmol/L (22-29); CHLORIDE 109 mmol/L (98-107); CREATININE, SERUM 0.58 mg/dL (0.72-1.25); EST GLOMERULAR FILTRATION RATE 127 ML/MIN (>=60); GLUCOSE 87 mg/dL (74-118); MAGNESIUM 1.8 MG/DL (1.3-2.1); PHOSPHORUS 4.8 MG/DL (2.3-4.7); SODIUM 140 mmol/L (136-145)
[2023-07-05 07:15] LABS: BUN/CREATININE RATIO 9 (6-25); POTASSIUM 3.2 mmol/L (3.5-5.1)
[2023-07-05 08:00] VITALS: BP 117/70; PULSE 75; RESP 18; TEMP 97.2; O2SAT 99
[2023-07-05] MEDS ORDERED: POTASSIUM CHLORIDE 20 MEQ TAB CR PO STA (08:02)
[2023-07-05] MEDS: CHOLESTYRAMINE 4 GM PACKET PO SCH (08:15)
[2023-07-05] MEDS: ALLOPURINOL 100 MG TAB PO SCH (08:15)
[2023-07-05] MEDS: SUCRALFATE 1 GM TAB PO SCH (08:16)
[2023-07-05] MEDS: CYANOCOBALAMIN INJ 1,000 MCG/ML VIAL IM SCH (08:16)
[2023-07-05] MEDS: DICYCLOMINE HCL 20 MG TAB PO SCH (08:16)
[2023-07-05] MEDS: FOLIC ACID/CYANOCOB/PYRIDOXINE TAB PO SCH (08:16)
[2023-07-05 10:03] VITALS: BP 139/110; PULSE 87; RESP 18; TEMP 98.1; O2SAT 100
[2023-07-07 07:18] LABS: ENDOMYSIAL ANTIBODIES, IGA Negative (Negative)
[2023-07-07 09:55] LABS: IMMUNOGLOBULIN A 217 mg/dL (90-386); TISSUE TRANSGLUTAMINASE IGA AB <2 U/mL (0-3)
[2023-07-12] MEDS ORDERED: PERCOCET 5-3251 EACH PO (09:04)
== END 2023-07-05 10:15 | disposition home or self-care (01) | DRG 872 ==
LOC: ER 22:22 → ERHOLD 06-28 01:31 → MED/SURG 06-28 16:02
PROVIDERS: ADMIT Internal Medicine; ATTEND Internal Medicine
PROC: 0DBE8ZX Excision of Large Intestine, Via Natural or Artificial Opening Endoscopic, Diagnostic (ICD-10-PCS; 2023-07-04)
PROC: 0DBP8ZX Excision of Rectum, Via Natural or Artificial Opening Endoscopic, Diagnostic (ICD-10-PCS; 2023-07-04)
PROC: 0DBB8ZX Excision of Ileum, Via Natural or Artificial Opening Endoscopic, Diagnostic (ICD-10-PCS; principal; 2023-07-04 10:30)
DX: A41.9 Sepsis, unspecified organism (principal); A04.72 Enterocolitis due to Clostridium difficile, not specified as recurrent; E87.20 Acidosis, unspecified; K61.1 Rectal abscess; R65.20 Severe sepsis without septic shock; K60.4 Rectal fistula; E87.6 Hypokalemia; K57.30 Diverticulosis of large intestine without perforation or abscess without bleeding; E83.42 Hypomagnesemia; K64.8 Other hemorrhoids; K62.89 Other specified diseases of anus and rectum; E53.8 Deficiency of other specified B group vitamins; K76.0 Fatty (change of) liver, not elsewhere classified; I10 Essential (primary) hypertension; E66.9 Obesity, unspecified; Z68.35 Body mass index [BMI] 35.0-35.9, adult; F43.10 Post-traumatic stress disorder, unspecified; M10.9 Gout, unspecified; Z90.49 Acquired absence of other specified parts of digestive tract; Z96.643 Presence of artificial hip joint, bilateral; Z79.899 Other long term (current) drug therapy
CPT/HCPCS: 36415; 45380; 71045; 74177; 80048; 80053; 81001; 82607; 82746; 82784; 83516; 83540; 83605; 83630; 83690; 83735; 83993; 84100; 84132; 84466; 85025; 85045; 86140; 86256; 87040; 87045; 87086; 87177; 87324; 87328; 87449; 88305; 93005; 94799; 99252; 99284; J2001; J2270; J2405; J2543; J2550; J2765; J3420; J3475; J3480; J7030; J7050; Q0162; Q9963; Q9967; U0002